=== PATIENT | female | born 1965 | race Hispanic/Latino ===

== ENCOUNTER 2018-06-11 19:22 | Emergency (ER) | payer OTHER ==
[~2018-06-11] VITALS: Ht 160 cm; Wt 63.5 kg
[~2018-06-11 19:22] MED LIST: ACTICIN 5% 60GM60 GM TOP; IBUPROFEN600 M1 PO; MELOXICAM7.5 M1 PO; ORPHENADRINE C100 MG PO; SYNTHROID75 MCG PO
[2018-06-11 19:27] VITALS: BP 150/90
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
[2018-06-11] MEDS ORDERED: CYCLOBENZAPRINE10 M1 PO (22:28)
[2018-06-11] MEDS ORDERED: IBUPROFEN800 M1 PO (22:28)
--- NOTE | 2018-06-11 23:02 | RADIOLOGY REPORT ---
EXAMINATION: XR CHEST CLINICAL INFORMATION: Fracture anterior chest pain COMPARISON: None TECHNIQUE: 2 views of the chest were obtained. FINDINGS: The lungs are poorly expanded. The heart size is normal. There is no evidence of CHF. No infiltrates effusions or lung masses are seen. Aorta is mildly unfolded. The bony thorax appears normal aside from mild scoliosis convex to the left which could be positional. IMPRESSION: No acute intrathoracic disease.
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
== END 2018-06-11 23:12 ==
LOC: ERH 19:22
DX: R51 Headache (principal); M54.5 Low back pain
CPT/HCPCS: 71046; 72110